=== PATIENT | female | born 1945 | race Caucasian/White ===

== ENCOUNTER 2019-09-23 13:59 | Inpatient (IN) ==
--- NOTE | 2019-09-23 14:24 | DR.DIZZY ---
HPI Time seen Time Seen by Provider: 09/23/19 14:12 PCP Primary Care Physician: REVELS Complaint Chief Complaint Doctor Comments: Has had symptoms for a about 10 days but dyspnea getting worse. Chief Complaint:: PT C/O WEAKNESS, DIARRHEA, NAUSEA, AND SOB. PT STAETS SHE HAS BEEN DIAGNOSED WITH THE COVID VIRUS 1.5 WEEK AGO. PT STATES HER SYMPTOMS ARE GETTING WORSE AND SHE CAN NOT EVEN WALK FROM HER BEDROOM TO THE BATHROOM WITHOUT GIVING OUT OF BREATH AND FEELING WEAK. COVID-19 Coronavirus risk:travel/contact w/high risk person: Yes Has patient experienced Coronavirus symptoms: Yes Coronavirus symptoms experienced: Fever and Shortness of Breath Nurses Notes Reviewed Nurses Notes Review: Yes Source History Provided: Patient and Family Member Mode of Arrival Mode of Arrival: Ambulatory Timing Onset of Chief Complaint: 09/13/19 Came on: Gradually Onset of Symptoms Start Date: 09/13/19 Duration Duration: Constant How lon Duration: Days Location of Weakness Weakness Location: Generalized Context Onset: At rest History of: None Stroke Symptoms: None Severity Severity: Abnormal activity level Modifying factors Worsens: Other (exertion) Associated signs and symptoms Associated Signs and Symptoms: Fever and Other (dyspnea, diarrhea, change in taste) PMH PMH Past Medical History: Yes Past Medical History: Coronary Artery Disease, Dyslipidemia, GERD and Headaches Past Surgical History: Yes Surgical History: Angioplasty/Stents and CABG/Valve Surgery Family History History of Family Medical Conditions: No Social History Type of Tobacco Use: None Does any household member use tobacco: No Alcohol Use: None Do you use any recreational Drugs:: No Lives With: Family Lives Where: Home Travel Risk Coronavirus risk:travel/contact w/high risk person: Yes Has patient experienced Coronavirus symptoms: Yes Coronavirus symptoms experienced: Fever and Shortness of Breath Infectious screening In the last 2 months have you had wt loss of >10#?: NO Have you had fever, night sweats or hemotysis?: No Have you traveled outside the country in the last 6 months?: No Isolation: Droplet ROS Review of Systems Constitutional: Fever and Weakness Eyes: No Symptoms Reported ENTM: No Symptoms Reported Respiratoy: Non-Productive Cough and Short of Breath Cardiovascular: No Symptoms Reported Gastrointestinal/Abdominal: No Symptoms Reported Genitourinary: No Symptoms Reported Neurological: No Symptoms Reported Musculoskeletal: No Symptoms Reported Integumentary: No Symptoms Reported Hematologic/Lymphatic: No Symptoms Reported Endocrine: No Symptoms Reported Psychiatric: Depression All Other Systems: Reviewed and Negative PE Vital Signs Vitals: Temperature 97.8 F Pulse Rate 64 Respiratory Rate 20 Blood Pressure 116/57 O2 Sat by Pulse Oximetry 88 General Limitations: No Limitations General Appearance: Alert and In No Apparent Distress Head Head Exam: Normal Inspection and Normocephalic Eyes Eye exam: Normal Appearance and EOMI ENT ENT Exam: Normal Exam Neck Neck Exam: Normal Inspection, Full ROM and Trachea Midline Chest Chest Inspection: Normal Inspection and Symmetric Chest Wall Rise Respiratory Respiratory Exam: Normal Lung Sounds Bilat; negative Accessory Muscle Use Respiratory Exam: Bilateral: Clear to Auscultation Cardiovascular Cardiovascular Exam: Regular Rate and Normal Rhythm Abdominal Exam Abdominal Exam: Normal Inspection and Normal Bowel Sounds Rectal Rectal Exam: Deferred Extremeties Extremities Exam: Normal Inspection and Full ROM Back Back Exam: Normal Inspection and Full ROM Neurologic Neurological Exam: Alert, Oriented X3 and CN II-XII Intact Patient Oriented To: Person, Place and Time Speech: Fluid Speech Psychiatric Psychiatric Exam: Depressed Skin Skin Exam: Normal Color Opioid Opioid Risk Tool Age (Osmel box if 16-45): No History of Preadolescent Sexual Abuse: No Total: 0 Total Score Risk Category: Low Risk Copyright: Jorge DAHL predicting aberrant behaviors
[2019-09-23] MEDS ORDERED: XOPENEX 1.25 MG/3 ML NEBULE NEB ONE ×2 (14:35→14:51)
[2019-09-23 15:29] LABS: BASOPHILS % (AUTO) 0.2 % (0.2-1.0); EOSINOPHILS % (AUTO) 0.2 % (0.9-2.9); HEMATOCRIT 40.7 % (36.0-47.0); HEMOGLOBIN 13.6 g/dL (12.0-16.0); LYMPHOCYTES # (AUTO) 2.3 X10^3/uL (1.3-2.9); LYMPHOCYTES % (AUTO) 28.9 % (21.0-51.0); MEAN CORPUSCULAR HEMOGLOBIN 28.3 pg (27.0-34.0); MEAN CORPUSCULAR HGB CONC 33.4 g/dL (33.0-35.0); MEAN CORPUSCULAR VOLUME 84.6 fL (80.0-100.0); MEAN PLATELET VOLUME 8.1 fL (7.4-11.0); MONOCYTES # (AUTO) 0.4 x10^3/uL (0.3-0.8); MONOCYTES % (AUTO) 5.5 % (0.0-13.0); NEUTROPHILS # (AUTO) 5.1 x10^3/uL (2.2-4.8); NEUTROPHILS % (AUTO) 65.2 % (42.0-75.0); PLATELET COUNT 276 X10^3/uL (150.0-450.0); RED BLOOD COUNT 4.81 X10^6/uL (3.5-5.4); RED CELL DISTRIBUTION WIDTH 14.6 % (11.6-16.5); WHITE BLOOD COUNT 7.8 X10^3/uL (3.6-10.0)
--- NOTE | 2019-09-23 16:01 | RAD ---
CHEST, 1 VIEWHISTORY: Diarrhea, nausea, shortness ofStudy: Single view of the chest.Comparison:NoneFindings:Cardiomegaly. Bilateral interstitial prominence, possible early alveolar infiltrates. No focal consolidations, pleural effusions or pneumothorax. Osseous structures demonstrate no acute abnormality.IMPRESSION:1. Bilateral interstitial prominence and early alveolar infiltrates. Findings may represent atypical infection, including viral etiologies.Electronically signed by: DEBRA WHITEHEAD (Sep 23, 2019 16:00:56)
--- NOTE | 2019-09-23 16:07 | DR.DIZZY ---
HPI Time seen Time Seen by Provider: 09/23/19 14:12 PCP Primary Care Physician: TIEN Complaint Chief Complaint:: PT C/O WEAKNESS, DIARRHEA, NAUSEA, AND SOB. PT STAETS SHE HAS BEEN DIAGNOSED WITH THE COVID VIRUS 1.5 WEEK AGO. PT STATES HER SYMPTOMS ARE GETTING WORSE AND SHE CAN NOT EVEN WALK FROM HER BEDROOM TO THE BATHROOM WITHOUT GIVING OUT OF BREATH AND FEELING WEAK. COVID-19 Coronavirus risk:travel/contact w/high risk person: Yes Has patient experienced Coronavirus symptoms: Yes Coronavirus symptoms experienced: Fever and Shortness of Breath Source History Provided: Patient and Family Member Mode of Arrival Mode of Arrival: Ambulatory Timing Onset of Chief Complaint: 09/13/19 Onset of Symptoms Start Date: 09/13/19 Location of Weakness Weakness Location: Generalized Context History of: None Stroke Symptoms: None Associated signs and symptoms Associated Signs and Symptoms: Fever and Other (dyspnea, diarrhea, change in taste) PMH PMH Past Medical History: Yes Past Medical History: Coronary Artery Disease, Dyslipidemia, GERD and Headaches Past Surgical History: Yes Surgical History: Angioplasty/Stents and CABG/Valve Surgery Family History History of Family Medical Conditions: No Social History Type of Tobacco Use: None Does any household member use tobacco: No Alcohol Use: None Do you use any recreational Drugs:: No Lives With: Family Lives Where: Home Travel Risk Coronavirus risk:travel/contact w/high risk person: Yes Has patient experienced Coronavirus symptoms: Yes Coronavirus symptoms experienced: Fever and Shortness of Breath Infectious screening In the last 2 months have you had wt loss of >10#?: NO Have you had fever, night sweats or hemotysis?: No Have you traveled outside the country in the last 6 months?: No Isolation: Droplet PE Vital Signs Vitals: Temperature 97.8 F Pulse Rate [Right Radial] 63 Pulse Rate 64 Respiratory Rate 21 Blood Pressure [Left Arm] 117/55 Blood Pressure 116/57 O2 Sat by Pulse Oximetry 97 ROR Labs Reviewed Result Diagrams: 09/23/19 15:20 09/23/19 15:20 Laboratory: WBC 7.8 X10^3/uL (3.6-10.0) 09/23/19 15:20 RBC 4.81 X10^6/uL (3.5-5.4) 09/23/19 15:20 Hgb 13.6 g/dL (12.0-16.0) 09/23/19 15:20 Hct 40.7 % (36.0-47.0) 09/23/19 15:20 MCV 84.6 fL (80.0-100.0) 09/23/19 15:20 MCH 28.3 pg (27.0-34.0) 09/23/19 15:20 MCHC 33.4 g/dL (33.0-35.0) 09/23/19 15:20 RDW 14.6 % (11.6-16.5) 09/23/19 15:20 Plt Count 276 X10^3/uL (150.0-450.0) 09/23/19 15:20 MPV 8.1 fL (7.4-11.0) 09/23/19 15:20 Neut % (Auto) 65.2 % (42.0-75.0) 09/23/19 15:20 Lymph % (Auto) 28.9 % (21.0-51.0) 09/23/19 15:20 [place] % (Auto) 5.5 % (0.0-13.0) 09/23/19 15:20 Eos % (Auto) 0.2 % (0.9-2.9) L 09/23/19 15:20 Baso % (Auto) 0.2 % (0.2-1.0) 09/23/19 15:20 Neut # (Auto) 5.1 x10^3/uL (2.2-4.8) H 09/23/19 15:20 Lymph # (Auto) 2.3 X10^3/uL (1.3-2.9) 09/23/19 15:20 [place] # (Auto) 0.4 x10^3/uL (0.3-0.8) 09/23/19 15:20 Eos # (Auto) 0.0 x10^3/uL (0.0-0.2) 09/23/19 15:20 Baso # (Auto) 0.0 X10^3/uL (0.0-0.1) 09/23/19 15:20 Absolute Nucleated RBC 0.1 /100WBC 09/23/19 15:20 Sample Site Rb 09/23/19 16:35 ABG pH 7.440 (7.35-7.45) 09/23/19 16:35 ABG pCO2 33.0 mmHg (35.0-45.0) L 09/23/19 16:35 ABG pO2 70.0 mmHg (80.0-100.0) L 09/23/19 16:35 ABG HCO3 22.4 mmol/L (22-26) 09/23/19 16:35 ABG O2 Saturation 94.0 % (90-100) 09/23/19 16:35 ABG Base Excess -1.1 mmol/L (-2.0-2.0) 09/23/19 16:35 Mitchell Test Na 09/23/19 16:35 A-a Gradient 38.0 mmHg 09/23/19 16:35 FiO2 21.0 09/23/19 16:35 Blood Gas Comments Alicia well cb 09/23/19 16:35 Sodium 139 mmol/L (136-145) 09/23/19 15:20 Corrected Sodium 140 mmol/L (136-145) 09/23/19 15:20 Potassium 3.6 mmol/L (3.5-5.1) 09/23/19 15:20 Chloride 102 mmol/L (98-107) 09/23/19 15:20 Carbon Dioxide 24.1 mmol/L (21-32) 09/23/19 15:20 BUN 51 mg/dL (7-18) H 09/23/19 15:20 Creatinine 1.89 mg/dL (0.55-1.02) H 09/23/19 15:20 Est GFR (MDRD) Af Amer 33 (>60) L 09/23/19 15:20 Est GFR (MDRD) Non-Af 28 (>60) L 09/23/19 15:20 Glucose 134 mg/dL (65-99) H 09/23/19 15:20 Calcium 9.3 mg/dL (8.5-10.1) 09/23/19 15:20 Corrected Calcium 10.3 mg/dL (8.5-10.1) H 09/23/19 15:20 Total Bilirubin 0.40 mg/dL (0.2-1.0) 09/23/19 15:20 AST 44 Units/L (15-37) H 09/23/19 15:20 ALT 28 Units/L (12-78) 09/23/19 15:20 Alkaline Phosphatase 64 Units/L (46-116) 09/23/19 15:20 Troponin I < 0.02 ng/mL (0-1.5) 09/23/19 15:20 C-Reactive Protein 62.90 mg/L (0-3.0) H 09/23/19 15:20 Total Protein 7.5 g/dL (6.4-8.2) 09/23/19 15:20 Albumin 2.8 g/dL (3.4-5.0) L 09/23/19 15:20 Globulin 4.7 g/dL (2.5-4.5) H 09/23/19 15:20 Albumin/Globulin Ratio 0.6 Ratio (1.1-2.1) L 09/23/19 15:20 Opioid Opioid Risk Tool Age (Osmel box if 16-45): No History of Preadolescent Sexual Abuse: No Total: 0 Total Score Risk Category: Low Risk Copyright: Jorge DAHL predicting aberrant behaviors Diagnosis Discharge Problem: Pneumonia due to 2019 novel coronavirus
[2019-09-23 16:36] LABS: ALBUMIN 2.8 g/dL (3.4-5.0); CALCIUM 9.3 mg/dL (8.5-10.1); CARBON DIOXIDE 24.1 mmol/L (21-32); COR CA(FOR HYPOALB) 10.3 mg/dL (8.5-10.1); CREATININE 1.89 mg/dL (0.55-1.02); TOTAL PROTEIN 7.5 g/dL (6.4-8.2)
[2019-09-23 16:40] LABS: ABG BASE EXCESS -1.1 mmol/L (-2.0-2.0); ABG HCO3 22.4 mmol/L (22-26)
[2019-09-23] MEDS ORDERED: REMDESIVIR (INVESTIGATIONAL DRUG GS-5734) IV ONE (17:29)
[2019-09-23] MEDS ORDERED: THIAMINE HCL INJ IM SCH (18:00)
[2019-09-23] MEDS ORDERED: NS 1000 ML 1,000 ML ONE (18:16)
[2019-09-23] MEDS: NS 1000 ML 1,000 ML IV SCH (18:23)
[2019-09-23] MEDS ORDERED: CORTEF ONE (20:27)
[2019-09-23] MEDS: ZINC SULFATE PO SCH (22:10)
[2019-09-23] MEDS: CORTEF PO SCH (22:10)
[2019-09-23] MEDS: PLAQUENIL PO SCH (22:10)
[2019-09-23] MEDS: LOVENOX INJ 30 MG SYR SC SCH (22:10)
[2019-09-23] MEDS: ASCORBIC ACID INJ MULTI-DOSE VIAL 1,500 MG in NS 100 ML IV 100 ML IV SCH (23:20)
[2019-09-24 01:00] VITALS: BMI 35.2
[2019-09-24] MEDS: ASCORBIC ACID INJ MULTI-DOSE VIAL 1,500 MG in NS 100 ML IV 100 ML IV SCH ×2 (04:30→09:20)
[2019-09-24 05:15] LABS: PLATELET COUNT 274 X10^3/uL (150.0-450.0)
[2019-09-24 05:21] LABS: BASOPHILS % (AUTO) 0.3 % (0.2-1.0); EOSINOPHILS % (AUTO) 0.3 % (0.9-2.9); HEMATOCRIT 39.5 % (36.0-47.0); HEMOGLOBIN 13.3 g/dL (12.0-16.0); LYMPHOCYTES # (AUTO) 1.5 X10^3/uL (1.3-2.9); MEAN CORPUSCULAR HEMOGLOBIN 28.6 pg (27.0-34.0); MEAN CORPUSCULAR HGB CONC 33.7 g/dL (33.0-35.0); MEAN CORPUSCULAR VOLUME 84.9 fL (80.0-100.0); MEAN PLATELET VOLUME 8.6 fL (7.4-11.0); MONOCYTES # (AUTO) 0.3 x10^3/uL (0.3-0.8); MONOCYTES % (AUTO) 6.9 % (0.0-13.0); NEUTROPHILS # (AUTO) 3.1 x10^3/uL (2.2-4.8); NEUTROPHILS % (AUTO) 62.5 % (42.0-75.0); RED BLOOD COUNT 4.65 X10^6/uL (3.5-5.4); RED CELL DISTRIBUTION WIDTH 14.4 % (11.6-16.5); WHITE BLOOD COUNT 4.9 X10^3/uL (3.6-10.0)
[2019-09-24 05:37] LABS: ALBUMIN 2.4 g/dL (3.4-5.0); CALCIUM 8.4 mg/dL (8.5-10.1); CARBON DIOXIDE 22.5 mmol/L (21-32); COR CA(FOR HYPOALB) 9.7 mg/dL (8.5-10.1); CREATININE 1.84 mg/dL (0.55-1.02); TOTAL PROTEIN 6.9 g/dL (6.4-8.2)
--- NOTE | 2019-09-24 06:13 | RAD ---
HISTORYSOBSTUDYCHEST, 1 [id number]/27/2020FINDINGSThe trachea is midline. The cardiac silhouette is stable. Bilateral pulmonary infiltrates/opacities unchanged. No new consolidation. No pleural effusion or pneumothorax.. The bony thorax is stable.IMPRESSIONNo significant interval change.Electronically signed by: Mary Patel (Sep 24, 2019 06:11:00)
[2019-09-24 06:15] LABS: ABG BASE EXCESS -1.7 mmol/L (-2.0-2.0)
[2019-09-24] MEDS ORDERED: CORTEF ONE (08:41)
[2019-09-24] MEDS ORDERED: VITAMIN D (1.25MG) PO SCH (09:00)
[2019-09-24] MEDS ORDERED: VITAMIN A PO SCH (09:00)
[2019-09-24] MEDS: ZINC SULFATE PO SCH ×2 (09:20→21:35)
[2019-09-24] MEDS: PLAQUENIL PO SCH ×2 (09:21→21:35)
[2019-09-24] MEDS: LOVENOX INJ 30 MG SYR SC SCH ×2 (09:21→21:40)
[2019-09-24] MEDS: CORTEF PO SCH (09:21)
[2019-09-24] MEDS: DUONEB 0.5 MG/3 MG (3 mL) NEB SCH ×4 (10:00→20:25)
[2019-09-24] MEDS ORDERED: PHARMACY CONSULT - TPN XX SCH (10:00)
[2019-09-24] MEDS: SOLU-Medrol 40 MG VIAL IVP SCH ×2 (13:17→22:05)
--- NOTE | 2019-09-24 13:20 | DR.H&P ---
H&P - History & Physical for Day of: H&P Date: 09/23/19 - Chief Complaint Chief Complaint: WEAKNESS, DIARRHEA, NAUSEA, FEVER, SOB - History of Present Illness History of Present Illness: IS A 73 YEAR OLD PATIENT OF OURS WHO PRESENTED TO THE ER WITH COMPLAINTS OF WEAKNESS, DIARRHEA, NAUSEA, FEVER, AND SHORTNESS OF BREATH X 10 DAYS. SHE WAS DIAGNOSED WITH COVID-19 ABOUT 10 DAYS PRIOR. SHE DENIES IMPROVEMENT IN SYMPTOMS. HER PMH INCLUDES: CAD, DYSLIPIDEMIA, GERD, HEADACHES, STENTS, CABG. ON ARRIVAL TO THE ER, VITALS WERE 97.8-64-20-88%RA-116/57. LABS WERE OBTAINED. ABNORMAL LAB VALUES INCLUDE THE FOLLOWING: BUN 51, CREATININE 1.89, GLUCOSE 134, AST 44, CRP 62.90, ALBUMIN 2.8, GLOBULIN 4.7. AN ABG WAS OBTAINED AND REVEALED: PH 7.440, PC02 33.0, P02 70.0, HC03 22.4, 02 SATURATION 94.0, FI02 21.0. A CHEST XRAY WAS OBTAINED AND REVEALED: 1. Bilateral interstitial prominence and early alveolar infiltrates. Findings may represent atypical infection, including viral etiologies. SHE WAS GIVEN REMDESIVIR 200MG IV X 1 DOSE AND A XOPENEX NEB TX IN THE ER. SHE WAS ADMITTED FOR FURTHER EVALUATION AND TREATMENT OF COVID-19 AND PNEUMONIA. SHE WAS STARTED ON NS AT 50 ML/HR, PROCALAMINE AT 40 ML/HR, LEVAQUIN 500MG IV DAILY, REMDESIVIR 100MG IV DAILY, DUONEBS QID, PULMICORT NEBS BID, ALBUMIN 25% IV DAILY, PLAQUENIL 200MG PO BID, SOLU-MEDROL 40MG IV Q4H, LOVENOX 30MG SC BID, AND ZINC 200MG PO BID. WE WILL REVIEW HER HOME MEDICATIONS. OTHERWISE, WE WILL FOLLOW UP WITH AM LABS AND CONTINUE TO MONITOR. - Past Medical History Past Medical History: Coronary Artery Disease, Dyslipidemia, GERD, Headaches - Past Surgical History Surgical History: CABG/Valve Surgery - Family History Family Medical History: Coronary Artery Disease, Hypertension - Social History Does patient currently use any type of tobacco product: No Have you used tobacco products in the last 12 months: No Type of Tobacco Use: None Does any household member use tobacco: No Alcohol Use: None Drug Use: None - Medications Home Medications: Anesthetics - Amide Type Adverse Reaction (Verified 09/23/19 14:01) CONTINUE taking the following medications aspirin [Aspirin Low Dose] 81 mg PO DAILY 09/24/19 [History] atenolol 25 mg PO HS 09/24/19 [History] azithromycin 250 mg PO DAILY 09/24/19 [History] hydrochlorothiazide 25 mg PO DAILY 09/24/19 [History] lisinopril 10 mg PO DAILY 09/24/19 [History] ondansetron HCl 4 mg PO Q6HR PRN 09/24/19 [History] simvastatin 40 mg PO DAILY 09/24/19 [History] - Review of Systems Constitutional: Fever, Chills, Weakness Eyes: No Symptoms Reported ENT: No Symptoms Reported Respiratory: See HPI, Cough, Shortness of Breath, SOB with Excertion, Wheezing Gastrointestinal: No Symptoms Reported, Nausea, Diarrhea Genitourinary: No Symptoms Reported Musculoskeletal: No Symptoms Reported Skin: No Symptoms Reported Neurological: Weakness - Physical Exam Vital Signs: Temperature 98.9 F Pulse Rate [Right Radial] 60 Pulse Rate 66 Respiratory Rate 20 Blood Pressure [Left Arm] 146/67 Blood Pressure 116/56 O2 Sat by Pulse Oximetry 95 Oriented: Normal Eyes: Normal Ear: Normal Nose: Normal Throat: Normal Respiratory: Wheezes Throughout Cardiovascular: Normal : Normal Auscultation: Bowel Sounds: Normal Palpation: Normal Tenderness: Normal Skin: Normal Musculoskeletal: Normal Psychiatric: Normal Mood Description: Calm Affect: Normal Speech Pattern: Clear - Assessment/Plan (1) COVID-19 Status: Acute Plan: NS AT 50 ML/HR, PROCALAMINE AT 40 ML/HR, LEVAQUIN 500MG IV DAILY, REMDESIVIR 100MG IV DAILY, DUONEBS QID, PULMICORT NEBS BID, ALBUMIN 25% IV DAILY, PLAQUENIL 200MG PO BID, SOLU-MEDROL 40MG IV Q4H, LOVENOX 30MG SC BID, AND ZINC 200MG PO BID. (2) Pneumonia Qualifiers: Pneumonia type: due to unspecified organism Laterality: bilateral Lung location: unspecified part of lung Qualified Code(s): J18.9 - Pneumonia, unspecified organism Status: Acute (3) Dehydration Status: Acute (4) Protein deficiency Status: Acute - Allergies Allergies/Adverse Reactions: Allergies Allergy/AdvReac Type Severity Reaction Status Date / Time Anesthetics - Amide Type AdvReac Verified 09/23/19 14:01
[2019-09-24] MEDS: ALBUMIN HUMAN 25%- 100 ML 100 ML IV SCH ×2 (15:38→16:38)
[2019-09-24] MEDS: LEVAQUIN PREMIX IV 500 MG 500 MG/100 ML BAG IV SCH (15:42)
[2019-09-24] MEDS: PROCALAMINE 3 % 1,000 ML IV SCH (16:39)
[2019-09-24] MEDS: PULMICORT NEB TX 0.5 MG NEB SCH ×2 (17:23→20:25)
[2019-09-24] MEDS: REMDESIVIR (INVESTIGATIONAL DRUG GS-5734) 100 MG in NS 250 ML IV 250 ML IV SCH (21:35)
[2019-09-24] MEDS: NS 1000 ML 1,000 ML IV SCH (22:39)
[2019-09-25 04:54] LABS: BASOPHILS % (AUTO) 0.1 % (0.2-1.0); HEMATOCRIT 37.2 % (36.0-47.0); HEMOGLOBIN 12.3 g/dL (12.0-16.0); LYMPHOCYTES # (AUTO) 0.6 X10^3/uL (1.3-2.9); LYMPHOCYTES % (AUTO) 18.2 % (21.0-51.0); MEAN CORPUSCULAR HEMOGLOBIN 28.2 pg (27.0-34.0); MEAN CORPUSCULAR VOLUME 85.4 fL (80.0-100.0); MEAN PLATELET VOLUME 8.7 fL (7.4-11.0); MONOCYTES # (AUTO) 0.2 x10^3/uL (0.3-0.8); MONOCYTES % (AUTO) 4.5 % (0.0-13.0); NEUTROPHILS # (AUTO) 2.6 x10^3/uL (2.2-4.8); NEUTROPHILS % (AUTO) 77.2 % (42.0-75.0); PLATELET COUNT 285 X10^3/uL (150.0-450.0); RED BLOOD COUNT 4.35 X10^6/uL (3.5-5.4); RED CELL DISTRIBUTION WIDTH 14.7 % (11.6-16.5); WHITE BLOOD COUNT 3.4 X10^3/uL (3.6-10.0)
[2019-09-25 05:02] LABS: CALCIUM 8.6 mg/dL (8.5-10.1); COR CA(FOR HYPOALB) 9.4 mg/dL (8.5-10.1); CREATININE 1.46 mg/dL (0.55-1.02); TOTAL PROTEIN 7.2 g/dL (6.4-8.2)
--- NOTE | 2019-09-25 06:25 | RAD ---
HISTORYShortness of breathSTUDYChest AP [id number]/28/2020FINDINGSPatient is status post median sternotomy and CABG. The heart remains enlarged. No congestive heart failure is noted. Bilateral predominantly peripheral lung infiltrates are unchanged. No pleural effusions are identified. Bony thorax is unremarkable.IMPRESSIONContinued cardiomegaly without congestive heart failureNo change bilateral peripheral infiltrateElectronically signed by: PEYMAN WALLACE (Sep 25, 2019 06:24:15)
[2019-09-25] MEDS: SOLU-Medrol 40 MG VIAL IVP SCH ×3 (06:51→21:06)
[2019-09-25] MEDS ORDERED: POTASSIUM CHL 40 MEQ/NS 0.45% 500 ML IV PRN (08:07)
[2019-09-25] MEDS ORDERED: KLOR-CON PO PRN (08:07)
[2019-09-25] MEDS ORDERED: K-RIDER 10 MEQ/NS 100 ML 10 MEQ/100 ML BAG IV PRN (08:07)
[2019-09-25] MEDS ORDERED: MICRO K EXTEN CAP 10 MEQ PO PRN (08:07)
[2019-09-25] MEDS ORDERED: POTASSIUM CHL 60 MEQ/NS 0.45% 500 ML IV PRN (08:07)
[2019-09-25] MEDS ORDERED: POTASSIUM CHLORIDE LIQ 20 MEQ UDC PO PRN (08:07)
[2019-09-25] MEDS: PLAQUENIL PO SCH ×2 (08:36→20:37)
[2019-09-25] MEDS: ZINC SULFATE PO SCH ×2 (08:36→20:37)
[2019-09-25] MEDS: K-DUR TAB 20 MEQ PO PRN (08:37)
[2019-09-25] MEDS: LOVENOX INJ 30 MG SYR SC SCH ×2 (08:38→20:37)
[2019-09-25] MEDS ORDERED: VITAMIN A PO SCH (09:00)
[2019-09-25] MEDS ORDERED: VITAMIN D3 25 mcg (1,000 UNITS) PO SCH (09:00)
[2019-09-25] MEDS: ALBUMIN HUMAN 25%- 100 ML 100 ML IV SCH (09:24)
[2019-09-25] MEDS: LEVAQUIN PREMIX IV 500 MG 500 MG/100 ML BAG IV SCH (09:25)
[2019-09-25] MEDS: PULMICORT NEB TX 0.5 MG NEB SCH ×2 (09:30→21:00)
[2019-09-25] MEDS: XOPENEX 1.25 MG/3 ML NEBULE NEB SCH ×2 (09:30→21:00)
--- NOTE | 2019-09-25 10:36 | PCM.PROG ---
Progress Note - Progress Note for Day of Date of Exam: 09/25/19 - Subjective Subjective: IS BEING TREATED FOR PNEUMONIA DUE TO COVID-19. TODAY, SHE IS ALERT AND ORIENTED, LYING IN BED ON MORNING ROUNDS. SHE CONTINUES WITH WEAKNESS, COUGH, SHORNESS OF BREATH, AND NAUSEA TODAY. ON EXAMINATION, HEART IS REGULAR IN RATE AND RHYTHM. BILATERAL LUNGS ARE NOTED WITH SCATTERED WHEEZING THROUGHOUT. ABDOMEN IS ROUND, SOFT, AND NON-TENDER WITH NORMAL BOWEL SOUNDS NOTED IN ALL QUADRANTS. HER VITALS THIS MORNING ARE: 98.8-74-35-90%-89/52. LABS WERE OBTAINED. ABNORMAL LAB VALUES INCLUDE THE FOLLOWING: WBC 3.4, SODIUM 134, POTASSIUM 3.4, BUN 38, CREATININE 1.46, GLOUCOSE 226, MAGNESIUM 1.2, FERRITIN 405, AST 43, CRP 34.60, ALBUMIN 3.0. BLOOD CULTURES ARE PENDING. A CHEST XRAY WAS OBTAINED AND REVEALED: Continued cardiomegaly without congestive heart failure. No change bilateral peripheral infiltrate. SHE IS CURRENTLY RECEIVING NS AT 50 ML/HR, PROCALAMINE AT 40 ML/HR, LEVAQUIN 500MG IV DAILY, REMDESIVIR 100MG IV DAILY, DUONEBS QID, PULMICORT NEBS BID, ALBUMIN 25% IV DAILY, PLAQUENIL 200MG PO BID, SOLU-MEDROL 40MG IV Q4H, LOVENOX 30MG SC BID, AND ZINC 200MG PO BID. WE WILL CONTINUE WITH CURRENT PLAN OF CARE TODAY AND REVIEW HER HOME MEDICATIONS. OTHERWISE, WE WILL FOLLOW UP WITH AM LABS AND CONTINUE TO MONITOR. - Past Medical Family Social History Past Med/Fam/Surg Hx: No changes since H&P Allergies: Allergies Anesthetics - Amide Type Adverse Reaction (Verified 09/23/19 14:01) - Review of Systems ROS: No change since H&P - Vital Signs and I&O's Vital Signs: Temperature 98.8 F Pulse Rate [Right Radial] 60 Pulse Rate 94 Respiratory Rate 36 Blood Pressure [Left Arm] 146/67 Blood Pressure 162/72 O2 Sat by Pulse Oximetry 95 Intake and Output: Intake & Output 09/22/19 09/23/19 09/24/19 09/25/19 11:59 11:59 11:59 11:59 Intake Total 1261 / 1261 2817 / 2817 Balance 1261 / 1261 2817 / 2817 - Physical Exam Oriented: Normal Eyes: Normal Ear: Normal Nose: Normal Throat: Normal Respiratory: Generalized, Diminished, Wheezes Cardiovascular: Normal : Normal Auscultation: Bowel Sounds: Normal Palpation: Normal Tenderness: Normal Skin: Normal Musculoskeletal: Normal Psychiatric: Normal Mood Description: Calm Affect: Normal Speech Pattern: Clear, Appropriate - Laboratory and Diagnostics Result Diagrams: 09/25/19 04:20 09/25/19 04:20 Labs: Laboratory WBC 3.4 X10^3/uL (3.6-10.0) L 09/25/19 04:20 RBC 4.35 X10^6/uL (3.5-5.4) 09/25/19 04:20 Hgb 12.3 g/dL (12.0-16.0) 09/25/19 04:20 Hct 37.2 % (36.0-47.0) 09/25/19 04:20 MCV 85.4 fL (80.0-100.0) 09/25/19 04:20 MCH 28.2 pg (27.0-34.0) 09/25/19 04:20 MCHC 33.0 g/dL (33.0-35.0) 09/25/19 04:20 RDW 14.7 % (11.6-16.5) 09/25/19 04:20 Plt Count 285 X10^3/uL (150.0-450.0) 09/25/19 04:20 MPV 8.7 fL (7.4-11.0) 09/25/19 04:20 Neut % (Auto) 77.2 % (42.0-75.0) H 09/25/19 04:20 Lymph % (Auto) 18.2 % (21.0-51.0) L 09/25/19 04:20 [place] % (Auto) 4.5 % (0.0-13.0) 09/25/19 04:20 Eos % (Auto) 0.0 % (0.9-2.9) L 09/25/19 04:20 Baso % (Auto) 0.1 % (0.2-1.0) L 09/25/19 04:20 Neut # (Auto) 2.6 x10^3/uL (2.2-4.8) 09/25/19 04:20 Lymph # (Auto) 0.6 X10^3/uL (1.3-2.9) L 09/25/19 04:20 [place] # (Auto) 0.2 x10^3/uL (0.3-0.8) L 09/25/19 04:20 Eos # (Auto) 0.0 x10^3/uL (0.0-0.2) 09/25/19 04:20 Baso # (Auto) 0.0 X10^3/uL (0.0-0.1) 09/25/19 04:20 Absolute Nucleated RBC 0.0 /100WBC 09/25/19 04:20 Sample Site Lbra 09/24/19 06:11 ABG pH 7.390 (7.35-7.45) 09/24/19 06:11 ABG pCO2 38.0 mmHg (35.0-45.0) 09/24/19 06:11 ABG pO2 67.0 mmHg (80.0-100.0) L 09/24/19 06:11 ABG HCO3 23.0 mmol/L (22-26) 09/24/19 06:11 ABG O2 Saturation 93.0 % (90-100) 09/24/19 06:11 ABG Base Excess -1.7 mmol/L (-2.0-2.0) 09/24/19 06:11 Mitchell Test Na 09/24/19 06:11 A-a Gradient 35.0 mmHg 09/24/19 06:11 FiO2 21.0 09/24/19 06:11 Blood Gas Comments Alicia abg well-mtf 09/24/19 06:11 Sodium 135 mmol/L (136-145) L 09/25/19 04:20 Corrected Sodium 138 mmol/L (136-145) 09/25/19 04:20 Potassium 3.4 mmol/L (3.5-5.1) L 09/25/19 04:20 Chloride 99 mmol/L (98-107) 09/25/19 04:20 Carbon Dioxide 22.0 mmol/L (21-32) 09/25/19 04:20 BUN 38 mg/dL (7-18) H 09/25/19 04:20 Creatinine 1.46 mg/dL (0.55-1.02) H 09/25/19 04:20 Est GFR (MDRD) Af Amer 45 (>60) L 09/25/19 04:20 Est GFR (MDRD) Non-Af 37 (>60) L 09/25/19 04:20 Glucose 226 mg/dL (65-99) H 09/25/19 04:20 Calcium 8.6 mg/dL (8.5-10.1) 09/25/19 04:20 Corrected Calcium 9.4 mg/dL (8.5-10.1) 09/25/19 04:20 Magnesium 1.2 mg/dL (1.7-2.9) L 09/25/19 04:20 Ferritin 405 ng/mL (8-252) H 09/25/19 04:20 Total Bilirubin 0.30 mg/dL (0.2-1.0) 09/25/19 04:20 AST 43 Units/L (15-37) H 09/25/19 04:20 ALT 31 Units/L (12-78) 09/25/19 04:20 Alkaline Phosphatase 60 Units/L (46-116) 09/25/19 04:20 Troponin I < 0.02 ng/mL (0-1.5) 09/23/19 15:20 C-Reactive Protein 34.60 mg/L (0-3.0) H 09/25/19 04:20 Total Protein 7.2 g/dL (6.4-8.2) 09/25/19 04:20 Albumin 3.0 g/dL (3.4-5.0) L 09/25/19 04:20 Globulin 4.2 g/dL (2.5-4.5) 09/25/19 04:20 Albumin/Globulin Ratio 0.7 Ratio (1.1-2.1) L 09/25/19 04:20 Prealbumin 13.2 mg/dL (18-35.7) L 09/24/19 04:35 - Plan (1) COVID-19 Status: Acute Plan: NS AT 50 ML/HR, PROCALAMINE AT 40 ML/HR, LEVAQUIN 500MG IV DAILY, REMDESIVIR 100MG IV DAILY, DUONEBS QID, PULMICORT NEBS BID, ALBUMIN 25% IV DAILY, PLAQUENIL 200MG PO BID, SOLU-MEDROL 40MG IV Q4H, LOVENOX 30MG SC BID, AND ZINC 200MG PO BID. (2) Pneumonia Status: Acute Qualifiers: Pneumonia type: due to unspecified organism Laterality: bilateral Lung location: unspecified part of lung Qualified Code(s): J18.9 - Pneumonia, uns pecified organism (3) Dehydration Status: Acute (4) Protein deficiency Status: Acute
[2019-09-25] MEDS: PROCALAMINE 3 % 1,000 ML IV SCH ×2 (11:39→23:58)
[2019-09-25] MEDS ORDERED: MAGNESIUM SULFATE 1 GRAM/100 mL PREMIX 1 G/100 ML BAG IV ONE (11:40)
[2019-09-25] MEDS: MAGNESIUM SULFATE 1 GRAM/100 mL PREMIX 1 GM/100 ML BAG IV PRN ×3 (13:53→16:22)
[2019-09-25] MEDS: NS 1000 ML 1,000 ML IV SCH (17:50)
[2019-09-25] MEDS: REMDESIVIR (INVESTIGATIONAL DRUG GS-5734) 100 MG in NS 250 ML IV 250 ML IV SCH (20:40)
[2019-09-26 05:08] LABS: BASOPHILS % (AUTO) 0.1 % (0.2-1.0); HEMATOCRIT 35.8 % (36.0-47.0); HEMOGLOBIN 11.6 g/dL (12.0-16.0); LYMPHOCYTES # (AUTO) 0.7 X10^3/uL (1.3-2.9); LYMPHOCYTES % (AUTO) 8.6 % (21.0-51.0); MEAN CORPUSCULAR HEMOGLOBIN 27.8 pg (27.0-34.0); MEAN CORPUSCULAR HGB CONC 32.5 g/dL (33.0-35.0); MEAN CORPUSCULAR VOLUME 85.4 fL (80.0-100.0); MEAN PLATELET VOLUME 8.6 fL (7.4-11.0); MONOCYTES # (AUTO) 0.4 x10^3/uL (0.3-0.8); NEUTROPHILS # (AUTO) 6.6 x10^3/uL (2.2-4.8); NEUTROPHILS % (AUTO) 86.3 % (42.0-75.0); PLATELET COUNT 290 X10^3/uL (150.0-450.0); RED BLOOD COUNT 4.19 X10^6/uL (3.5-5.4); RED CELL DISTRIBUTION WIDTH 14.4 % (11.6-16.5); WHITE BLOOD COUNT 7.7 X10^3/uL (3.6-10.0)
[2019-09-26 05:18] LABS: ALBUMIN 3.1 g/dL (3.4-5.0); CALCIUM 8.5 mg/dL (8.5-10.1); CARBON DIOXIDE 23.9 mmol/L (21-32); COR CA(FOR HYPOALB) 9.2 mg/dL (8.5-10.1); CREATININE 1.34 mg/dL (0.55-1.02); TOTAL PROTEIN 6.7 g/dL (6.4-8.2)
[2019-09-26] MEDS: SOLU-Medrol 40 MG VIAL IVP SCH ×3 (05:21→22:13)
--- NOTE | 2019-09-26 06:06 | RAD ---
HISTORYSOBSTUDYCHEST, 1 [id number]/29/2020FINDINGSThe trachea is midline. The cardiac silhouette is grossly stable accounting for difference in technique. Perihilar and middle lung zone opacity/infiltrates not appreciably changed. No pleural effusion. No pneumothorax.. The bony thorax is stable.IMPRESSIONNo appreciable interval change.Electronically signed by: Mary Patel (Sep 26, 2019 06:05:50)
[2019-09-26] MEDS: XOPENEX 1.25 MG/3 ML NEBULE NEB SCH ×2 (08:55→20:10)
[2019-09-26] MEDS: PULMICORT NEB TX 0.5 MG NEB SCH ×2 (08:55→20:10)
[2019-09-26] MEDS: LOVENOX INJ 30 MG SYR SC SCH ×2 (09:40→20:30)
[2019-09-26] MEDS: ALBUMIN HUMAN 25%- 100 ML 100 ML IV SCH (09:40)
[2019-09-26] MEDS: LEVAQUIN PREMIX IV 500 MG 500 MG/100 ML BAG IV SCH (09:40)
[2019-09-26] MEDS: PLAQUENIL PO SCH ×2 (09:47→20:30)
[2019-09-26] MEDS: MILK OF MAGNESIA PO SCH (09:47)
[2019-09-26] MEDS: ZINC SULFATE PO SCH ×2 (09:48→20:30)
[2019-09-26] MEDS: PROCALAMINE 3 % 1,000 ML IV SCH (09:48)
[2019-09-26] MEDS: K-DUR TAB 20 MEQ PO PRN (09:50)
[2019-09-26] MEDS: NS 1000 ML 1,000 ML IV SCH ×2 (19:07→20:26)
[2019-09-26] MEDS ORDERED: COLACE CAP 100 MG PO ONE (19:37)
[2019-09-26] MEDS: REMDESIVIR (INVESTIGATIONAL DRUG GS-5734) 100 MG in NS 250 ML IV 250 ML IV SCH (20:24)
[2019-09-26] MEDS ORDERED: COLACE CAP 100 MG PO SCH (21:00)
[2019-09-26] MEDS ORDERED: TUSSIONEX PENNKINETIC SUSP ONE (21:52)
[2019-09-26] MEDS: TUSSIONEX PENNKINETIC SUSP PO PRN (21:57)
[2019-09-27] MEDS: PROCALAMINE 3 % 1,000 ML IV SCH (04:13)
[2019-09-27] MEDS: SOLU-Medrol 40 MG VIAL IVP SCH (05:29)
--- NOTE | 2019-09-27 06:01 | RAD ---
HISTORYSOBSTUDYCHEST, 1 [id number]/30/2020FINDINGSThe trachea is midline. The cardiac silhouette is stable. Patchy bilateral pulmonary opacities/infiltrates, unchanged compared to prior exam.. The bony thorax is unchangedIMPRESSIONNo significant interval change.Electronically signed by: Mary Patel (Sep 27, 2019 06:00:41)
[2019-09-27] MEDS ORDERED: ZESTRIL TAB 10 MG PO SCH (06:09)
[2019-09-27] MEDS ORDERED: ZESTRIL TAB 10 MG ONE (06:14)
[2019-09-27 06:21] LABS: BASOPHILS % (AUTO) 0.1 % (0.2-1.0); HEMATOCRIT 35.3 % (36.0-47.0); HEMOGLOBIN 11.6 g/dL (12.0-16.0); LYMPHOCYTES # (AUTO) 0.6 X10^3/uL (1.3-2.9); LYMPHOCYTES % (AUTO) 6.5 % (21.0-51.0); MEAN CORPUSCULAR HEMOGLOBIN 27.8 pg (27.0-34.0); MEAN CORPUSCULAR HGB CONC 32.8 g/dL (33.0-35.0); MEAN CORPUSCULAR VOLUME 84.7 fL (80.0-100.0); MEAN PLATELET VOLUME 8.2 fL (7.4-11.0); MONOCYTES # (AUTO) 0.5 x10^3/uL (0.3-0.8); MONOCYTES % (AUTO) 5.8 % (0.0-13.0); NEUTROPHILS # (AUTO) 7.7 x10^3/uL (2.2-4.8); NEUTROPHILS % (AUTO) 87.6 % (42.0-75.0); PLATELET COUNT 289 X10^3/uL (150.0-450.0); RED BLOOD COUNT 4.17 X10^6/uL (3.5-5.4); RED CELL DISTRIBUTION WIDTH 14.6 % (11.6-16.5); WHITE BLOOD COUNT 8.8 X10^3/uL (3.6-10.0)
[2019-09-27 06:32] LABS: ALBUMIN 3.3 g/dL (3.4-5.0); CALCIUM 8.4 mg/dL (8.5-10.1); CARBON DIOXIDE 26.4 mmol/L (21-32); CREATININE 1.29 mg/dL (0.55-1.02); TOTAL PROTEIN 6.8 g/dL (6.4-8.2)
[2019-09-27] MEDS: PULMICORT NEB TX 0.5 MG NEB SCH (09:00)
[2019-09-27] MEDS: XOPENEX 1.25 MG/3 ML NEBULE NEB SCH (09:00)
[2019-09-27] MEDS: ALBUMIN HUMAN 25%- 100 ML 100 ML IV SCH (09:19)
[2019-09-27] MEDS: LEVAQUIN PREMIX IV 500 MG 500 MG/100 ML BAG IV SCH (09:21)
[2019-09-27] MEDS: PLAQUENIL PO SCH (09:21)
[2019-09-27] MEDS: MILK OF MAGNESIA PO SCH (09:21)
[2019-09-27] MEDS: ZINC SULFATE PO SCH (09:21)
[2019-09-27] MEDS: LOVENOX INJ 30 MG SYR SC SCH (09:22)
[2019-09-27] MEDS: TUSSIONEX PENNKINETIC SUSP PO PRN (09:24)
[2019-09-27 13:11] VITALS: BP 181/78
== END 2019-09-27 13:45 | disposition home health service (06) | DRG 177 ==
LOC: ER 14:25 → ICU 18:11
PROVIDERS: ADMIT Internal Medicine; ATTEND Internal Medicine
DX: Z95.1 Presence of aortocoronary bypass graft; R26.81 Unsteadiness on feet; U07.1 COVID-19; I51.7 Cardiomegaly; J12.89 Other viral pneumonia; E86.0 Dehydration; E46 Unspecified protein-calorie malnutrition; E78.5 Hyperlipidemia, unspecified
CPT/HCPCS: 36415; 36600; 71010; 71045; 80053; 82728; 82803; 83735; 84134; 84484; 85025; 86140; 94640; 94760; 96365; 97110; 97116; 97161; 97166; 97530; 99284; A4222; B5200; J1650; J1956; J2920; J3475; J3480; J7030; J7050; J7620; J7626; P9047

== ENCOUNTER 2022-12-06 12:20 | Observation (INO) ==
[2022-12-06] MEDS ORDERED: CONSULT PHARMACY - POTASSIUM & MAGNESIUM XX SCH (14:48)
--- NOTE | 2022-12-06 15:01 | EKG ---
Test Reason : CHEST PAIN Blood Pressure : */* mmHG Vent. Rate : 58 BPM Atrial Rate : 58 BPM P-R Int : 178 ms QRS Dur : 94 ms QT Int : 448 ms P-R-T Axes : 35 44 84 degrees QTc Int : 439 ms Sinus bradycardia Nonspecific ST and T wave abnormality Abnormal ECG No previous ECGs available Confirmed by Kendrick Powers MD ([id number]) on 12/07/2022 7:33:09 AM Referred By: Confirmed By: Kendrick Powers MD
[2022-12-06 15:06] VITALS: BMI 34.2
[2022-12-06] MEDS ORDERED: FLUARIX QUAD VACC (FOR AGE 6 MONTHS+) IM ONE (15:06)
[2022-12-06] MEDS ORDERED: PREVNAR 13 SYRINGE IM ONE (15:06)
[2022-12-06 15:15] LABS: BASOPHILS % (AUTO) 0.4 % (0.2-1.0); EOSINOPHILS # (AUTO) 0.1 x10^3/uL (0.0-0.2); EOSINOPHILS % (AUTO) 1.7 % (0.9-2.9); HEMATOCRIT 42.1 % (36.0-47.0); HEMOGLOBIN 13.8 g/dL (12.0-16.0); LYMPHOCYTES # (AUTO) 2.6 X10^3/uL (1.3-2.9); LYMPHOCYTES % (AUTO) 35.6 % (21.0-51.0); MEAN CORPUSCULAR HEMOGLOBIN 27.2 pg (27.0-34.0); MEAN CORPUSCULAR HGB CONC 32.9 g/dL (33.0-35.0); MEAN CORPUSCULAR VOLUME 82.8 fL (80.0-100.0); MONOCYTES # (AUTO) 0.4 x10^3/uL (0.3-0.8); MONOCYTES % (AUTO) 5.2 % (0.0-13.0); NEUTROPHILS # (AUTO) 4.2 x10^3/uL (2.2-4.8); NEUTROPHILS % (AUTO) 57.1 % (42.0-75.0); PLATELET COUNT 177 X10^3/uL (150.0-450.0); RED BLOOD COUNT 5.08 X10^6/uL (3.5-5.4); RED CELL DISTRIBUTION WIDTH 16.2 % (11.6-16.5); WHITE BLOOD COUNT 7.3 X10^3/uL (3.6-10.0)
[2022-12-06 15:22] LABS: ALANINE AMINOTRANSFERASE 20 Units/L (12-78); ALBUMIN 3.9 g/dL (3.4-5.0); ALKALINE PHOSPHATASE 93 Units/L (46-116); ASPARTATE AMINO TRANSFERASE 21 Units/L (15-37); BLOOD UREA NITROGEN 30 mg/dL (7-18); CALCIUM 8.7 mg/dL (8.5-10.1); CARBON DIOXIDE 28.4 mmol/L (21-32); CHLORIDE 106 mmol/L (98-107); CREATINE KINASE 72 Units/L (26-192); CREATININE 1.11 mg/dL (0.55-1.02); GLUCOSE 89 mg/dL (65-99); POTASSIUM 3.5 mmol/L (3.5-5.1); SODIUM 144 mmol/L (136-145); TOTAL PROTEIN 7.8 g/dL (6.4-8.2); eGFR NON BLACK RACES 51 (>60)
[2022-12-06] MEDS ORDERED: K-DUR TAB 20 MEQ PO SCH (16:00)
[2022-12-06 16:53] VITALS: RESP 20
--- NOTE | 2022-12-06 18:34 | EKG ---
Test Reason : CHEST PAIN Blood Pressure : */* mmHG Vent. Rate : 55 BPM Atrial Rate : 55 BPM P-R Int : 196 ms QRS Dur : 84 ms QT Int : 466 ms P-R-T Axes : 44 34 87 degrees QTc Int : 445 ms Sinus bradycardia Otherwise normal ECG When compared with ECG of 06-DEC-2022 14:51, (Unconfirmed) No significant change was found Confirmed by Kendrick Powers MD ([id number]) on 12/07/2022 7:33:25 AM Referred By: Confirmed By: Kendrick Powers MD
[2022-12-06] MEDS: LASIX IVP SCH (20:17)
--- NOTE | 2022-12-06 23:01 | EKG ---
Test Reason : CHEST PAIN Blood Pressure : */* mmHG Vent. Rate : 60 BPM Atrial Rate : 60 BPM P-R Int : 202 ms QRS Dur : 84 ms QT Int : 450 ms P-R-T Axes : 51 36 96 degrees QTc Int : 450 ms Normal sinus rhythm Nonspecific ST and T wave abnormality Abnormal ECG When compared with ECG of 06-DEC-2022 18:24, (Unconfirmed) No significant change was found Confirmed by Kendrick Powers MD ([id number]) on 12/07/2022 7:33:42 AM Referred By: Confirmed By: Kendrick Powers MD
[2022-12-07 05:07] LABS: BASOPHILS % (AUTO) 0.5 % (0.2-1.0); EOSINOPHILS # (AUTO) 0.1 x10^3/uL (0.0-0.2); EOSINOPHILS % (AUTO) 2.2 % (0.9-2.9); HEMATOCRIT 37.5 % (36.0-47.0); HEMOGLOBIN 12.4 g/dL (12.0-16.0); LYMPHOCYTES # (AUTO) 1.7 X10^3/uL (1.3-2.9); LYMPHOCYTES % (AUTO) 28.9 % (21.0-51.0); MEAN CORPUSCULAR HEMOGLOBIN 27.2 pg (27.0-34.0); MEAN CORPUSCULAR HGB CONC 33.2 g/dL (33.0-35.0); MEAN CORPUSCULAR VOLUME 81.8 fL (80.0-100.0); MEAN PLATELET VOLUME 9.9 fL (7.4-11.0); MONOCYTES # (AUTO) 0.4 x10^3/uL (0.3-0.8); MONOCYTES % (AUTO) 6.8 % (0.0-13.0); NEUTROPHILS # (AUTO) 3.7 x10^3/uL (2.2-4.8); NEUTROPHILS % (AUTO) 61.6 % (42.0-75.0); PLATELET COUNT 162 X10^3/uL (150.0-450.0); RED BLOOD COUNT 4.58 X10^6/uL (3.5-5.4)
[2022-12-07 05:23] LABS: ALANINE AMINOTRANSFERASE 18 Units/L (12-78); ALBUMIN 3.2 g/dL (3.4-5.0); ALKALINE PHOSPHATASE 75 Units/L (46-116); ASPARTATE AMINO TRANSFERASE 19 Units/L (15-37); BLOOD UREA NITROGEN 23 mg/dL (7-18); CALCIUM 8.5 mg/dL (8.5-10.1); CARBON DIOXIDE 30.1 mmol/L (21-32); CHLORIDE 108 mmol/L (98-107); CHOL/HDL RATIO 2.5 (0.0-5.0); CHOLESTEROL 120 mg/dL (0-200); COR CA(FOR HYPOALB) 9.1 mg/dL (8.5-10.1); CREATININE 0.92 mg/dL (0.55-1.02); GLUCOSE 83 mg/dL (65-99); HDL CHOLESTEROL 48 mg/dL (40-60); MAGNESIUM 1.4 mg/dL (2.0-2.9); POTASSIUM 3.8 mmol/L (3.5-5.1); SODIUM 146 mmol/L (136-145); TOTAL PROTEIN 6.6 g/dL (6.4-8.2); TRIGLYCERIDES 75 mg/dL (0-150); eGFR NON BLACK RACES > 60 (>60)
[2022-12-07] MEDS ORDERED: CONSULT PHARMACY - POTASSIUM & MAGNESIUM XX SCH (06:00)
[2022-12-07 08:07] VITALS: BP 146/68; PULSE 67; TEMP 97.9; O2SAT 93
--- NOTE | 2022-12-07 08:21 | RAD ---
EXAM:CHEST x-ray, 1 VIEWHISTORY:CHEST PAIN, SOB -COMPARISON:X-ray 02/15/2021FINDINGS:Prior sternotomy. Heart is normal in size. Calcification is seen of the aortic arch. No pneumothorax, focal infiltrate, or pleural effusion is seen.IMPRESSION:No acute cardiopulmonary abnormality is seen.THIS IS AN ELECTRONICALLY VERIFIED FINAL [id number]/07/2022 8:17 AM - Electronically signed by Rohit Bowers MD
[2022-12-07] MEDS ORDERED: ASPIRIN EC 81 MG PO SCH (09:00)
[2022-12-07] MEDS ORDERED: HYDROCHLOROTHIAZIDE 25 MG TAB PO SCH (09:00)
[2022-12-07] MEDS ORDERED: LOVENOX INJ 40 MG SYR SC SCH (09:00)
[2022-12-07] MEDS ORDERED: AMARYL TAB 4 MG PO SCH (09:00)
[2022-12-07] MEDS ORDERED: ZYLOPRIM PO SCH (09:00)
[2022-12-07] MEDS ORDERED: NORVASC TAB 5 MG PO SCH (09:00)
[2022-12-07] MEDS ORDERED: TENORMIN PO SCH (09:00)
[2022-12-07] MEDS ORDERED: SYNTHROID 25 mcg TAB PO SCH (09:00)
[2022-12-07] MEDS ORDERED: PriLOSEC PO SCH (09:00)
[2022-12-07] MEDS ORDERED: K-DUR TAB 20 MEQ PO SCH (09:00)
[2022-12-07] MEDS ORDERED: ZOCOR TAB 40 MG PO SCH (09:00)
[2022-12-07] MEDS: MAG-OX TAB PO SCH ×4 (09:27→11:55)
[2022-12-07] MEDS: LASIX IVP SCH (09:29)
[2022-12-07] MEDS ORDERED: SNACK - Diabetic Appropriate PO SCH (20:00)
--- NOTE | 2022-12-08 10:31 | DR.CARTERS ---
Short Stay Summary - Admission Date Date of Admission: 12/06/22 - Discharge Date Discharge Date: 12/07/22 - Admission Diagnoses (1) Chest pain, rule out acute myocardial infarction Status: Acute (2) Lower extremity edema Status: Acute (3) Shortness of breath Status: Acute (4) HTN (hypertension) Status: Acute (5) GERD (gastroesophageal reflux disease) Status: Acute (6) DM II (diabetes mellitus, type II), controlled Status: Acute - Discharge Medications Discharge Medications: Home Medication List allopurinol 100 mg tablet 100 mg PO QDAY 12/06/22 [History] amlodipine 5 mg tablet 5 mg PO QDAY 12/06/22 [History] glimepiride 2 mg tablet 2 mg PO QDAY 12/06/22 [History] levothyroxine 25 mcg tablet 25 mcg PO QDAY 12/06/22 [History] omeprazole 40 mg capsule,delayed release 40 mg PO DAILY 12/06/22 [History] Prescriptions: - Hospital Course Hospital Course: WAS A DIRECT ADMISSION OBSERVATION STATUS FOR EVALUATION AND TREATMENT OF CHEST PAIN, SHORTNESS OF BREATH, LOWER EXTREMITY EDEMA, AND GENERALIZED WEAKNESS. HER PMH INCLUDES: HTN, GERD, ARTHRITIS, DM II, CABG, LUMPECTOMY LEFT BREAST. SHE DESCRIBED CHEST PAIN INTERMITTENT. IT WAS LOCATED ON THE LEFT SIDE AND WAS DESCRIBED PRESSURE. SHE REPORTED THAT PAIN STARTED ABOUT TWO WEEKS PRIOR. PAIN IS WORSE ON EXERTION. SHE DENIED PRESENT PAIN UPON ARRIVAL TO THE HOSPITAL. ON ARRIVAL, HER VITALS WERE: 98.3-20-98%-184/93. LABS WERE OBTAINED. WBC 7.3, RBC 5.08, HGB 13.8, HCT 42.1, PLT COUNT 177, D-DIMER 0.56, SODIUM 144, POTASSIUM 3.5, CHLORIDE 106, CARBON DIXOIDE 28.4, BUN 30, CREATININE 1.11, GLUCOSE 89, CALCIUM 8.7, MAGNESIUM 1.4, AST 21, ALT 20, ALKT PHOS 93, CREATINE KINASE 72, TROPONIN 35.9, BNP 256, TOTAL PROTEIN 7.8, ALBUMIN 3.9. A CHEST XRAY WAS OBTAINED AND REVEALED: Prior sternotomy. Heart is normal in size. Calcification is seen of the aortic arch. No pneumothorax, focal infiltrate, or pleural effusion is seen. EKG REVEALED: SINUS BRADYCARDIA WITH HR 58 BPM. ON ADMISSION, SHE WAS STARTED ON LASIX 20MG IV BID, LOVENOX 40MG SC DAILY. HER HOME MEDICATIONS OF POTASSIUM CHLORIDE, ALLOPURINOL, AMLODIPINE, ECOTRIN, ATENOLOL, GLIMEPIRIDE, HCTZ, LEVOTHYROXINE, OMEPRAZOLE, AND SIMVASTATIN WERE RESUMED. WE PLANNED TO OBTAIN SERIAL CARDIAC ENZYMES AND EKGS. OTHERWISE, WE PLANNED TO FOLLOW UP WITH AM LABS AND CONTINUE TO MONITOR. ON THE MORNING FOLLOWING ADMISSION, PATIENT IS ALERT AND ORIENTED, WALKING AROUND THE ROOM. SHE DENIED CURRENT COMPLAINTS AND REPORTS HAVING AN UNEVENTFUL NIGHT. SHE DENIES ACTIVE CHEST PAIN THIS MORNING. SHE DOES REPORT CONTINUING TO HAVE SOME INTERMITTENT SHORTNESS OF BREATH, BUT NONE AT THE PRESENT TIME. ON EXAMINATION, HEART IS REGULAR IN RATE AND RHYTHM. BILATERAL LUNGS ARE NOTED WITH DIMINISHED LUNG SOUNDS THROUGHOUT. ABDOMEN IS ROUND, SOFT, AND NON-TENDER WITH NORMAL BOWEL SOUNDS NOTED IN ALL QUADRANTS. GOOD RANGE OF MOTION NOTED TO UPPER AND LOWER EXTREMITIES. TRACE EDEMA NOTED TO BILATERAL LOWER EXTREMITIES. VITALS THIS MORNING WERE: 97.9-67-20-93%-146/68. LABS WERE OBTAINED. WBC 6.0, RBC 4.58, HGB 12.4, HCT 37.5, PLT COUNT 162, SODIUM 146, POTASSIUM 3.8, CHLORIDE 108, BUN 23, CREATININE 0.92, GLUCOSE 83, CALCIUM 8.5, MAGNESIUM 1.4, AST 19, ALT 18, ALK PHOS 75, TOTAL PROTEIN 6.6, ALBUMIN 3.2, TRIGLYCERIDES 75, CHOLESTEROL 120, LDL 57, HDL 48. CARDIAC ENZYMES HAVE BEEN WITHIN NORMAL LIMITS AND EKGS UNCHANGED. PATIENT REQUESTED DISCHARGE HOME. WE PLANNED FOR DISCHARGE. INSTRUCTIONS FOR MEDICATIONS AND FOLLOW UP WERE DISCUSSED WITH PATIENT. SHE WAS INSTRUCTED TO CONTINUE HER CURRENT MEDICATION WITH NO CHANGES MADE TO DOSAGES. 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 PATIENT VERBALIZED UNDERSTANDING. PATIENT WAS DISCHARGED HOME WITH HER FAMILY IN STABLE CONDITION. TIME SPENT ON CLINICAL ASSESSMENT, REVIEWING LABS AND IMAGING, DECISION MAKING, DISCHARGE INSTRUCTIONS, PREPARING DISCHARGE PAPERS, AND DOCUMENTATION GREATER THAN 75 MINUTES. - Discharge Plan Disposition: 01 HOME, SELF-CARE Condition: Stable - Follow up/Referrals Follow up/Referrals: Taylor Hanley [Nurse Practitioner] - 12/14/22 2:20 pm KARINA YOON [REFERRING] - 12/14/22 9:45 am ([place]) - Instructions Instructions: Shortness of Breath, Adult, Nonspecific Chest Pain, Adult, [id number], Edema, [id number], Angina, Lmoz-rb-Truy Additional Instructions: DIET TOLERATED. ACTIVITY TOLERATED. Forms: Post Hospital Follow Up Care
== END 2022-12-07 11:55 | disposition home or self-care (01) ==
LOC: MED/SURG
PROVIDERS: ADMIT Internal Medicine; ATTEND Internal Medicine
DX: R53.1 Weakness; R06.02 Shortness of breath; E83.42 Hypomagnesemia; R00.1 Bradycardia, unspecified; I10 Essential (primary) hypertension; E11.65 Type 2 diabetes mellitus with hyperglycemia; R07.89 Other chest pain; K21.9 Gastro-esophageal reflux disease without esophagitis